=== PATIENT | male | born 1965 | race Caucasian/White ===

== ENCOUNTER 2024-05-24 00:30 | Emergency (ER) | payer BC ==
[2024-05-24 00:36] VITALS: BP 111/70; PULSE 80; RESP 20; BMI 25.0
[2024-05-24] MEDS ORDERED: ACETAMINOPHEN INJECTION 100 ML IVPB ONE (01:18)
[2024-05-24] MEDS: ACETAMINOPHEN 1000 MG/100 ML BAG IVPB ONE (01:21)
[2024-05-24 01:46] LABS: BASO % 0.4 % (0-2.0); HEMOGLOBIN 15.6 GM/dL (11.7-16.9); LYMPH % 16.8 % (8-40); MCH 29.4 pg (25.7-33.7); MCHC 33.9 g/dl (32.0-35.9); MEAN CELL VOLUME 86.9 fl (80-96); MEAN PLT VOLUME 7.1 fl (7.5-11.1); NEUT % 77.8 % (42.8-82.8); PLATELET COUNT 204 10^3/uL (134-434); RDW 12.3 % (11.9-15.9); WHITE BLOOD COUNT 10.4 K/mm3 (4.0-10.0)
[2024-05-24 02:02] LABS: POTASSIUM 4.4 mmol/L (3.5-5.1)
[2024-05-24 02:03] LABS: CALCIUM 8.9 mg/dL (8.5-10.1)
[2024-05-24 02:04] LABS: ALBUMIN 4.2 g/dl (3.4-5.0); BLOOD UREA NITROGEN 20.9 mg/dL (7-18)
[2024-05-24 02:08] LABS: TOT PROT 6.8 g/dl (6.4-8.2)
[2024-05-24 02:09] LABS: BILIRUBIN,TOTAL 0.9 mg/dL (0.2-1)
[2024-05-24] MEDS ORDERED: VANCOMYCIN 1 GRAM (PRE-DOCKED) 1,000 MG/250 ML BAG IVPB ONE (02:20)
[2024-05-24] MEDS: VANCOMYCIN 1,000 MG in DEXTROSE 5%-WATER - 250 ML IVPB ONE (02:25)
[2024-05-24 02:29] VITALS: TEMP 98.7
[2024-05-24 02:52] LABS: CREATININE 1.5 mg/dL (0.55-1.3)
[2024-05-24] MEDS: SODIUM CHLORIDE 0.9% 500 ML INFUS.BAG IV ONE (03:43)
== END 2024-05-24 03:44 | disposition home or self-care (01) ==
LOC: JER 00:30
PROC: 3E03329 Introduction of Other Anti-infective into Peripheral Vein, Percutaneous Approach (ICD-10-PCS; principal; 2024-05-24)
PROC: 3E033NZ Introduction of Analgesics, Hypnotics, Sedatives into Peripheral Vein, Percutaneous Approach (ICD-10-PCS; 2024-05-24)
DX: T63.441A Toxic effect of venom of bees, accidental (unintentional), initial encounter (principal); L53.9 Erythematous condition, unspecified; M79.89 Other specified soft tissue disorders; N17.9 Acute kidney failure, unspecified; Z20.822 Contact with and (suspected) exposure to COVID-19
CPT/HCPCS: 0241U-QW; 36415; 80053; 85025; 99284-25; J0131

== ENCOUNTER 2024-05-24 09:43 | Observation (INO) | payer BC ==
[2024-05-24 10:57] LABS: BASO % 0.3 % (0-2.0); EOS % 1.8 % (0-4.5); HEMATOCRIT 45.3 % (35.4-49); HEMOGLOBIN 15.6 GM/dL (11.7-16.9); LYMPH % 17.8 % (8-40); MCH 29.5 pg (25.7-33.7); MCHC 34.5 g/dl (32.0-35.9); MEAN CELL VOLUME 85.6 fl (80-96); MEAN PLT VOLUME 6.8 fl (7.5-11.1); MONO % 5.6 % (3.8-10.2); NEUT % 74.5 % (42.8-82.8); PLATELET COUNT 176 10^3/uL (134-434); RBC 5.29 M/mm3 (4.00-5.60); RDW 12.4 % (11.9-15.9); WHITE BLOOD COUNT 8.2 K/mm3 (4.0-10.0)
[2024-05-24] MEDS ORDERED: diphenhydrAMINE HCL 25 MG CAPSULE (FP) PO ONE (11:05)
[2024-05-24] MEDS ORDERED: ACETAMINOPHEN INJECTION 100 ML IVPB ONE (11:05)
[2024-05-24] MEDS ORDERED: methylPREDNISolone NA SUCC 125 MG/2 ML VIAL ONE (11:05)
[2024-05-24 11:17] LABS: POTASSIUM 4.7 mmol/L (3.5-5.1)
[2024-05-24 11:20] LABS: BLOOD UREA NITROGEN 17.6 mg/dL (7-18); CALCIUM 8.9 mg/dL (8.5-10.1)
[2024-05-24 11:21] LABS: ALBUMIN 4.2 g/dl (3.4-5.0)
[2024-05-24] MEDS: methylPREDNISolone NA SUCC 125 MG/2 ML VIAL IVPB ONE (11:22)
[2024-05-24] MEDS: diphenhydrAMINE HCL 25 MG CAPSULE (FP) PO ONE (11:22)
[2024-05-24] MEDS: ACETAMINOPHEN 1000 MG/100 ML BAG IVPB ONE (11:22)
[2024-05-24 11:25] LABS: BILIRUBIN,TOTAL 1.6 mg/dL (0.2-1); TOT PROT 6.8 g/dl (6.4-8.2)
[2024-05-24 11:26] LABS: CREATININE 1.3 mg/dL (0.55-1.3)
[2024-05-24] MEDS ORDERED: AMPICILLIN NA/SULBACTAM NA 3 GM/100 ML BAG IVPB ONE ×2 (16:00→21:25)
[2024-05-24] MEDS: AMPICILLIN NA/SULBACTAM NA 3 GM in SODIUM CHLORIDE 100 ML IVPB SCH ×2 (16:10→22:32)
[2024-05-24] MEDS ORDERED: lamoTRIgine 100 MG TABLET ONE (22:35)
[2024-05-24] MEDS ORDERED: cloNIDine HCL 0.1 MG TABLET ONE (22:35)
[2024-05-24] MEDS: cloNIDine HCL 0.1 MG TABLET PO SCH (22:42)
[2024-05-24] MEDS: lamoTRIgine 100 MG TABLET PO SCH (22:42)
[2024-05-25 02:44] VITALS: BMI 25.2
[2024-05-25 09:46] LABS: BASO % 0.1 % (0-2.0); EOS % 0.1 % (0-4.5); HEMATOCRIT 40.9 % (35.4-49); HEMOGLOBIN 14.1 GM/dL (11.7-16.9); LYMPH % 10.2 % (8-40); MCH 29.4 pg (25.7-33.7); MCHC 34.5 g/dl (32.0-35.9); MEAN CELL VOLUME 85.1 fl (80-96); MEAN PLT VOLUME 7.4 fl (7.5-11.1); MONO % 4.7 % (3.8-10.2); NEUT % 84.9 % (42.8-82.8); PLATELET COUNT 187 10^3/uL (134-434); RDW 12.2 % (11.9-15.9); WHITE BLOOD COUNT 14.4 K/mm3 (4.0-10.0)
[2024-05-25] MEDS ORDERED: TACROLIMUS TP SCH (10:00)
[2024-05-25 10:01] LABS: INR 1.06 (0.83-1.09)
[2024-05-25 10:04] LABS: ACTIVATED PTT 32.4 SECONDS (25.2-36.5)
[2024-05-25 10:05] LABS: POTASSIUM 4.1 mmol/L (3.5-5.1)
[2024-05-25 10:08] LABS: ALBUMIN 3.8 g/dl (3.4-5.0); BLOOD UREA NITROGEN 21.3 mg/dL (7-18); CALCIUM 8.9 mg/dL (8.5-10.1); MAGNESIUM 2.2 mg/dL (1.8-2.4)
[2024-05-25 10:11] LABS: CREATININE 1.1 mg/dL (0.55-1.3); PHOSPHOROUS 3.2 mg/dL (2.5-4.9)
[2024-05-25 10:13] LABS: BILIRUBIN,TOTAL 0.9 mg/dL (0.2-1); TOT PROT 6.2 g/dl (6.4-8.2)
[2024-05-25] MEDS: diphenhydrAMINE HCL 25 MG CAPSULE (FP) PO ONE (13:54)
[2024-05-25] MEDS: SODIUM CHLORIDE 0.45% 1,000 ML IV SCH (13:57)
[2024-05-25 15:31] LABS: URINE APPEARANCE CLEAR; URINE BILIRUBIN NEGATIVE (NEGATIVE); URINE COLOR YELLOW; URINE GLUCOSE (UA) NEGATIVE (NEGATIVE); URINE KETONE TRACE (NEGATIVE); URINE LEUK ESTERASE NEGATIVE (NEGATIVE); URINE NITRITE NEGATIVE (NEGATIVE); URINE PROTEIN NEGATIVE (NEGATIVE); URINE UROBILINOGEN 0.2 mg/dL (0.2-1.0)
[2024-05-25] MEDS ORDERED: VANCOMYCIN/WATER 1250 MG 1,250 MG/250 ML BAG IVPB SCH (17:00)
[2024-05-25] MEDS: VANCOMYCIN/WATER 1250 MG 1,250 MG/250 ML BAG IVPB SCH (18:00)
[2024-05-26 09:30] LABS: HEMATOCRIT 43.2 % (35.4-49); HEMOGLOBIN 14.8 GM/dL (11.7-16.9); MCH 29.9 pg (25.7-33.7); MCHC 34.3 g/dl (32.0-35.9); MEAN CELL VOLUME 87.2 fl (80-96); MEAN PLT VOLUME 7.1 fl (7.5-11.1); PLATELET COUNT 188 10^3/uL (134-434); RBC 4.96 M/mm3 (4.00-5.60); RDW 12.2 % (11.9-15.9); WHITE BLOOD COUNT 9.7 K/mm3 (4.0-10.0)
[2024-05-26 09:44] LABS: POTASSIUM 3.6 mmol/L (3.5-5.1)
[2024-05-26 09:54] LABS: ALBUMIN 3.9 g/dl (3.4-5.0); CALCIUM 8.2 mg/dL (8.5-10.1)
[2024-05-26 09:55] LABS: BLOOD UREA NITROGEN 16.9 mg/dL (7-18)
[2024-05-26 09:59] LABS: BILIRUBIN,TOTAL 1.4 mg/dL (0.2-1); TOT PROT 6.5 g/dl (6.4-8.2)
[2024-05-26] MEDS: CEFAZOLIN SODIUM 2 GM in DEXTROSE 5%-WATER 100 ML IVPB SCH (12:02)
[2024-05-26] MEDS ORDERED: hydrOXYzine PAMOATE 25 MG CAPSULE (FP) PO PRN (14:26)
[2024-05-26] MEDS ORDERED: ACETAMINOPHEN 325 MG TABLET (FP) PO PRN (15:35)
[2024-05-26] MEDS: VANCOMYCIN PREMIX 1.5 GM 1,500 MG/300 ML BAG IVPB SCH (17:21)
[2024-05-26] MEDS: cloNIDine HCL 0.1 MG TABLET PO SCH (21:14)
[2024-05-26] MEDS: HYDROCORTISONE 0.5% TOPICAL CREAM 30 GM TUBE TP SCH (21:15)
[2024-05-27 04:05] VITALS: RESP 18
[2024-05-27 08:02] LABS: HEMATOCRIT 43.2 % (35.4-49); HEMOGLOBIN 14.7 GM/dL (11.7-16.9); MCH 29.4 pg (25.7-33.7); MEAN CELL VOLUME 86.3 fl (80-96); MEAN PLT VOLUME 7.1 fl (7.5-11.1); PLATELET COUNT 190 10^3/uL (134-434); RBC 5.01 M/mm3 (4.00-5.60); RDW 12.1 % (11.9-15.9); WHITE BLOOD COUNT 8.1 K/mm3 (4.0-10.0)
[2024-05-27 08:09] VITALS: TEMP 98.2
[2024-05-27 08:20] LABS: POTASSIUM 3.7 mmol/L (3.5-5.1)
[2024-05-27 08:23] LABS: BLOOD UREA NITROGEN 18.3 mg/dL (7-18); CALCIUM 8.6 mg/dL (8.5-10.1); MAGNESIUM 2.2 mg/dL (1.8-2.4)
[2024-05-27] MEDS: LORATADINE 10 MG TABLET PO SCH (10:56)
[2024-05-27 14:28] VITALS: BP 107/59; PULSE 68
== END 2024-05-27 14:33 | disposition home or self-care (01) ==
LOC: JER 09:43 → JERBED 14:41 → UNDOADMOB 14:41 → INTOOBSV 14:41 → J5S 05-25 02:20 → JERBED 05-25 02:20 → J5S 05-25 13:20 → JERBED 05-25 13:20 → J5S 05-27 04:55
PROVIDERS: ADMIT Family Medicine; ATTEND Internal Medicine
PROC: 3E033NZ Introduction of Analgesics, Hypnotics, Sedatives into Peripheral Vein, Percutaneous Approach (ICD-10-PCS; principal; 2024-05-25)
PROC: 3E033GC Introduction of Other Therapeutic Substance into Peripheral Vein, Percutaneous Approach (ICD-10-PCS; 2024-05-25)
PROC: 3E03329 Introduction of Other Anti-infective into Peripheral Vein, Percutaneous Approach (ICD-10-PCS; 2024-05-25)
DX: T63.461S Toxic effect of venom of wasps, accidental (unintentional), sequela (principal); L03.114 Cellulitis of left upper limb; E86.0 Dehydration; Y92.008 Other place in unspecified non-institutional (private) residence as the place of occurrence of the external cause; X58.XXXS Exposure to other specified factors, sequela; Y93.89 Activity, other specified; Y99.8 Other external cause status; F90.9 Attention-deficit hyperactivity disorder, unspecified type; D75.A Glucose-6-phosphate dehydrogenase (G6PD) deficiency without anemia; Z88.2 Allergy status to sulfonamides
CPT/HCPCS: 36415; 73130-TC-LT-FY; 73200-TC-RT; 80048; 80053; 81003; 83036; 83735; 84100; 85025; 85027; 85610; 85730; 87040; 87081; 99285-25; G0378; J0131